=== PATIENT | male | born 1980 | race Caucasian/White ===

== ENCOUNTER 2017-01-20 15:49 | Inpatient (IN) | payer BC ==
[~2017-01-20] VITALS: Ht 162.6 cm; Wt 97.1 kg
[2017-01-20 19:59] LABS: BASOPHIL % 0.7 % (0-2); PLATELET COUNT 179 x10^3mcL (130-400); RED CELL DISTRIBUTION WIDTH 13.3 % (11.5-14.5)
[2017-01-20 20:13] VITALS: BP 132/71
[2017-01-20 20:29] LABS: T3 TOTAL 1.78 ng/mL
[2017-01-20 20:31] LABS: FREE T4 1.11 ng/dL (0.76-1.46); FREE THYROXINE INDEX 2.6 ug/dL (1.4-4.5); T4(THYROXINE) 7.8 ug/dL (4.7-13.3)
[2017-01-20 21:31] LABS: ALBUMIN 3.9 g/dL (3.4-5.0); ALKALINE PHOSPHATASE 69 U/L (46-116); ALT/SGPT 98 U/L (16-63); AMYLASE 52 U/L (25-115); AST/SGOT 43 U/L (15-37); BILIRUBIN TOTAL 0.81 mg/dL (0.20-1.00); CALCIUM 8.8 mg/dL (8.5-10.1); CARBON DIOXIDE 24.4 mmol/L (21-32); CHLORIDE SERUM 107 mmol/L (98-107); CHOLESTEROL 137 mg/dL (<200); CREATININE SERUM 0.9 mg/dL (0.7-1.3); GFR1 > 60 mL/min; GLUCOSE SERUM 92 mg/dL (74-106); HDL CHOLESTEROL 46 mg/dL (40-60); LIPASE 107 IU/L (73-393); POTASSIUM SERUM 3.6 mmol/L (3.5-5.1); SODIUM SERUM 142 mmol/L (136-145); TOTAL PROTEIN, SERUM 7.2 g/dL (6.4-8.2); TRIGLYCERIDES 57 mg/dL (<150)
[2017-01-21 05:39] VITALS: BP 126/73
[2017-01-21 08:47] LABS: BASOPHIL % 0 % (0-2); PLATELET COUNT 185 x10^3mcL (130-400); RED CELL DISTRIBUTION WIDTH 13.1 % (11.5-14.5)
[2017-01-21 09:05] LABS: CALCIUM 8.2 mg/dL (8.5-10.1); CARBON DIOXIDE 27.1 mmol/L (21-32); CHLORIDE SERUM 106 mmol/L (98-107); GFR1 > 60 mL/min; GLUCOSE SERUM 105 mg/dL (74-106); MAGNESIUM 1.8 mg/dL (1.8-2.4); PHOSPHOROUS 4.4 mg/dL (2.5-4.9); POTASSIUM SERUM 4.3 mmol/L (3.5-5.1); SODIUM SERUM 141 mmol/L (136-145)
[2017-01-21 10:25] VITALS: BP 124/83
[2017-01-21 14:52] VITALS: BP 146/96
[2017-01-21 18:17] VITALS: BP 150/77
[2017-01-21 22:12] VITALS: BP 124/78
[2017-01-22 06:27] VITALS: BP 116/79
[2017-01-22 06:30] LABS: CALCIUM 7.9 mg/dL (8.5-10.1); CARBON DIOXIDE 23.1 mmol/L (21-32); CHLORIDE SERUM 108 mmol/L (98-107); CREATININE SERUM 0.9 mg/dL (0.7-1.3); GFR1 > 60 mL/min; GLUCOSE SERUM 89 mg/dL (74-106); POTASSIUM SERUM 3.5 mmol/L (3.5-5.1); SODIUM SERUM 140 mmol/L (136-145)
[2017-01-22 06:31] LABS: ALBUMIN 3.2 g/dL (3.4-5.0)
[2017-01-22 06:48] LABS: BASOPHIL % 0.4 % (0-2); PLATELET COUNT 179 x10^3mcL (130-400); RED CELL DISTRIBUTION WIDTH 12.9 % (11.5-14.5)
[2017-01-22 07:51] LABS: microscopic required? NO
[2017-01-22 08:09] LABS: UA SPECIFIC GRAVITY 1.025 (1.005-1.035); urine erythrocyte NEGATIVE (NEGATIVE)
[2017-01-22 08:45] VITALS: BP 124/82
[2017-01-22 12:54] VITALS: BP 121/87
[2017-01-22 18:39] VITALS: BP 131/79
[2017-01-22 20:30] VITALS: BP 121/77; BP 123/83
[2017-01-23 05:40] LABS: ALBUMIN 3.4 g/dL (3.4-5.0); CALCIUM 8.2 mg/dL (8.5-10.1); CARBON DIOXIDE 20.6 mmol/L (21-32); CHLORIDE SERUM 105 mmol/L (98-107); CREATININE SERUM 0.8 mg/dL (0.7-1.3); GFR1 > 60 mL/min; GLUCOSE SERUM 112 mg/dL (74-106); POTASSIUM SERUM 3.7 mmol/L (3.5-5.1); SODIUM SERUM 138 mmol/L (136-145)
[2017-01-23 05:50] VITALS: BP 131/80
[2017-01-23 05:51] LABS: PLATELET COUNT 201 x10^3mcL (130-400); RED CELL DISTRIBUTION WIDTH 13.1 % (11.5-14.5)
[2017-01-23 05:52] LABS: BASOPHIL % 0 % (0-2)
[2017-01-23 09:07] VITALS: BP 120/80
[2017-01-23 16:06] VITALS: Ht 162.6 cm; Wt 97.1 kg
[2017-01-23 17:22] VITALS: BP 124/86
[2017-01-23] MEDS ORDERED: NAPROSYN500 MG PO (20:48)
[2017-01-23] MEDS ORDERED: NORCO 10-325 T1 EACH PO (20:48)
[2017-01-23] MEDS ORDERED: TOR10 PO (20:48)
[2017-01-23 21:03] VITALS: BP 122/77
[2017-01-24 06:08] LABS: BASOPHIL % 0.3 % (0-2); PLATELET COUNT 189 x10^3mcL (130-400); RED CELL DISTRIBUTION WIDTH 13.4 % (11.5-14.5)
[2017-01-24 06:25] VITALS: BP 136/84
[2017-01-24 06:42] LABS: CALCIUM 8.2 mg/dL (8.5-10.1); CARBON DIOXIDE 26.4 mmol/L (21-32); CHLORIDE SERUM 104 mmol/L (98-107); GFR1 > 60 mL/min; GLUCOSE SERUM 69 mg/dL (74-106); POTASSIUM SERUM 3.6 mmol/L (3.5-5.1); SODIUM SERUM 141 mmol/L (136-145)
[2017-01-24 09:04] VITALS: BP 122/84
[2017-01-24 17:01] VITALS: BP 128/80
[2017-01-24 21:32] VITALS: BP 113/68
[2017-01-25 05:26] VITALS: BP 127/71
[2017-01-25 10:35] VITALS: BP 119/78
[2017-01-25] MEDS ORDERED: ROB750 PO (11:23)
[2017-01-25] MEDS ORDERED: NAP500 PO (11:23)
[2017-01-25] MEDS ORDERED: NOR10T PO (11:24)
[2017-01-25 12:44] VITALS: BP 119/78
== END 2017-01-25 14:14 | disposition home or self-care (01) | DRG 552 ==
LOC: ED 15:49 → MU 18:20 → DU 18:20 → MU 01-21 11:04
PROVIDERS: Family Medicine; ADMIT Family Medicine
DX: M54.5 Low back pain (principal); E44.0 Moderate protein-calorie malnutrition; M62.838 Other muscle spasm; M51.37 Other intervertebral disc degeneration, lumbosacral region; R00.0 Tachycardia, unspecified; E83.51 Hypocalcemia; E87.8 Other disorders of electrolyte and fluid balance, not elsewhere classified; K76.0 Fatty (change of) liver, not elsewhere classified; R91.8 Other nonspecific abnormal finding of lung field; T38.0X5A Adverse effect of glucocorticoids and synthetic analogues, initial encounter; D72.829 Elevated white blood cell count, unspecified; Z68.36 Body mass index [BMI] 36.0-36.9, adult
CPT/HCPCS: 83880; 84439; 97110-GP; 97116-GP; 97530-GP; G0480; J1100; J1170; J1885; J2270; J2800; J3010; J7030

== ENCOUNTER 2018-08-11 09:04 | Emergency (ER) | payer BC ==
[~2018-08-11] VITALS: Ht 162.6 cm; Wt 94.5 kg
[~2018-08-11 09:04] MED LIST: NAP500 PO; NAPROSYN500 MG PO; NOR10T PO; NORCO 10-325 T1 EACH PO; ROB750 PO; TOR10 PO
[2018-08-11 09:16] VITALS: Ht 162.6 cm; Wt 94.5 kg
[2018-08-11 11:18] VITALS: BP 136/72
== END 2018-08-11 11:45 | disposition home or self-care (01) ==
LOC: ED 09:04
DX: G89.29 Other chronic pain (principal); M54.5 Low back pain
CPT/HCPCS: J1885; J3010

== ENCOUNTER 2018-10-17 17:35 | Emergency (ER) | payer BC ==
[~2018-10-17] VITALS: Ht 162.6 cm; Wt 90.7 kg
[2018-10-17 17:37] VITALS: BP 140/97
== END 2018-10-17 17:45 | disposition left against medical advice (07) ==
LOC: ED 17:35
DX: Z53.21 Procedure and treatment not carried out due to patient leaving prior to being seen by health care provider (principal)